=== PATIENT | male | born 1965 | race Caucasian/White ===

== ENCOUNTER 2024-02-07 00:50 | Emergency (ER) | payer MEDICAID ==
[~2024-02-07] VITALS: Ht 152.4 cm; Wt 59.0 kg
[2024-02-07 00:53] VITALS: TEMP 97.9; O2SAT 100
[2024-02-07 01:54] LABS: BASOPHILS % 0.8 % (0.0-2.0); EOSINOPHILS % 5.3 % (0.0-5.0); HEMATOCRIT. 38.7 % (42.0-52.0); HEMOGLOBIN. 13.4 g/dL (14.0-18.0); LYMPHOCYTES % 26.8 % (20.0-50.0); MEAN CORPUSCULAR HGB CONC 34.7 g/dL (31.0-37.0); MEAN PLATELET VOLUME 7.6 fl (7.4-10.4); NEUTROPHILS % 57.1 % (40.0-76.0); PLATELET 206 x1000/uL (130-400); RED BLOOD CELL COUNT 4.07 mill/uL (4.7-6.1); RED CELL DISTRIBUTION WIDTH 13.2 % (11.6-14.6); WHITE BLOOD COUNT 8.8 x1000/uL (4.5-11.0)
[2024-02-07 01:59] LABS: AMMONIA < 17 uMol/L (<32)
[2024-02-07 02:00] LABS: ALANINE AMINOTRANSFERASE 34 IU/L (10-49); ASPARTATE AMINOTRANSFERASE 45 IU/L (<34); BILIRUBIN TOTAL 0.5 mg/dL (0.1-1.0); CALCIUM 10.4 mg/dL (8.7-10.4); CARBON DIOXIDE 26 mEq/L (21-32); CHLORIDE 111 mEq/L (98-107); CREATININE 1.8 mg/dL (0.6-1.3); GLUCOSE 92 mg/dL (70-105); POTASSIUM 3.7 mEq/L (3.5-5.1); PROTEIN TOTAL 8.4 g/dL (6.0-8.3); SODIUM 141 mEq/L (136-145); TROPONIN I HIGH SENSITIVITY 8 ng/L (3.0-53); UREA NITROGEN BLOOD 27 mg/dL (9-23)
[2024-02-07] MEDS: SODIUM CHLORIDE 0.9% 1,000 ML IV ONE (02:14)
[2024-02-07 08:11] VITALS: BP 107/69; PULSE 79; RESP 20
== END 2024-02-07 08:59 | disposition short-term general hospital (02) ==
LOC: ER 00:50 → CANBEDREQ 02-08 09:52
DX: I63.9 Cerebral infarction, unspecified (principal); J44.9 Chronic obstructive pulmonary disease, unspecified; I10 Essential (primary) hypertension; Z88.8 Allergy status to other drugs, medicaments and biological substances
CPT/HCPCS: 80053; 82140; 83605; 85025; 87040; 84484; 36415; 71045; 70450; 96360; 96361; 99285; J7030; Z7610 ×2